=== PATIENT | female | born 1980 | race Hispanic/Latino ===

== ENCOUNTER → 2017-06-30 | Outpatient (CLI) | payer OTHER ==
[~2017-06-30] MED LIST: PROHANCE 279.3MG/ML 15ML VIAL (A9576) As Ordered
== END ==
LOC: M RAD 16:54
DX: R42 Dizziness and giddiness (principal)
CPT/HCPCS: A9576

== ENCOUNTER 2019-04-03 19:40 | Emergency (ER) | payer OTHER ==
[~2019-04-03] VITALS: Ht 154.9 cm; Wt 80.9 kg
[2019-04-03 23:12] VITALS: BP 170/90
[2019-04-03] MEDS ORDERED: ACETAMINOPHEN 325 MG TAB PO ONE (23:15)
[2019-04-03] MEDS ORDERED: hydrALAZINE INJ 20 MG/ML VIAL IV ONE (23:15)
[2019-04-03 23:20] LABS: BASO # 0.1 10^3/uL (0.0-0.2); BASO % 0.5 % (0.0-1.0); EOS # 0.2 10^3/uL (0.0-0.5); EOS % 1.9 % (0.0-3.0); HEMATOCRIT 40.9 % (36.0-47.0); HEMOGLOBIN 13.8 g/dl (12.0-15.5); LYMPH % 29.8 % (24.0-44.0); MEAN CORPUSCULAR HEMOGLOBIN 29.1 pg (27.0-33.0); MEAN CORPUSCULAR HGB CONC 33.7 g/dl (32.0-36.5); MEAN CORPUSCULAR VOLUME 86.1 fl (80.0-96.0); NEUTROPHILS # 5.9 10^3/uL (1.5-8.5); NEUTROPHILS % 57.4 % (36.0-66.0); PLATELET COUNT, AUTOMATED 357 10^3/uL (150-450); RED BLOOD COUNT 4.75 10^6/uL (4.00-5.40); WHITE BLOOD COUNT 10.2 10^3/uL (4.0-10.0)
[2019-04-03 23:28] LABS: HCG, SERUM QUALITATIVE NEGATIVE (NEGATIVE)
[2019-04-03 23:34] LABS: BLOOD UREA NITROGEN 11 MG/DL (7-18); CALCIUM LEVEL 8.9 MG/DL (8.5-10.1); CARBON DIOXIDE LEVEL 25 MEQ/L (21-32); CHLORIDE LEVEL 110 MEQ/L (98-107); CK-MB VALUE MASS < 1.0 NG/ML (<3.6); CPK CREATINE PHOSPHOKINASE 87 U/L (26-192); CREATININE FOR GFR 0.65 MG/DL (0.55-1.30); GLOMERULAR FILTRATION RATE > 60.0 (>60); GLUCOSE, FASTING 101 MG/DL (70-100); MB/CK RELATIVE INDEX 1.15 (< OR =4); SODIUM LEVEL 140 MEQ/L (136-145); TROPONIN I < 0.02 NG/ML (< 0.10)
[2019-04-03] MEDS ORDERED: KETOROLAC 30 MG/ML VIAL (J1885) As Ordered ONE (23:59)
[2019-04-04 00:20] VITALS: BP 147/90
--- NOTE | 2019-04-04 01:02 | ECGEPIP ---
[facility] - ED Test Date: 2019-04-03 Pat Name: TIFFANI GAMINO Department: Room: - Gender: Female Dietician: ct : 1980 Requested By: EMILY Quach PA-C Order Number: [id number] Reading MD: Juan Antonio Darling Measurements Intervals [place] Rate: 71 P: 9 TX: 155 QRS: -5 QRSD: 104 T: 18 QT: 380 QTc: 416 Interpretive Statements SINUS RHYTHM WITH SINUS ARRHYTHMIA INCOMPLETE RIGHT BUNDLE BRANCH BLOCK NSTTW ABNORMALITIES NO PRIORS FOR COMPARISON Electronically Signed on 04-04-2019 1:02:11 EDT by Juan Antonio Darling
--- NOTE | 2019-04-04 05:33 | REP ---
Clinical: Acute chest pain . Comparison: None . Technique: PA and lateral. Findings: The mediastinum and cardiac silhouette are normal. The lung alfaro are clear and without acute consolidation, effusion, or pneumothorax. The skeletal structures are intact and normal. Impression: 1. No acute cardiopulmonary process. Electronically Signed by Celestine Gates MD 04/04/2019 05:24 A
== END 2019-04-04 00:37 | disposition home or self-care (01) ==
LOC: M ED 19:40
DX: R00.2 Palpitations (principal); R51 Headache; R03.0 Elevated blood-pressure reading, without diagnosis of hypertension; I45.19 Other right bundle-branch block; R73.03 Prediabetes; Z87.442 Personal history of urinary calculi; Z87.891 Personal history of nicotine dependence; Z82.49 Family history of ischemic heart disease and other diseases of the circulatory system; Z83.3 Family history of diabetes mellitus; Z88.0 Allergy status to penicillin

== ENCOUNTER 2020-07-22 10:41 | Emergency (ER) | payer OTHER ==
[~2020-07-22] VITALS: Ht 154.9 cm; Wt 86.0 kg
--- OUTSIDE RECORDS SUMMARY | 2020-07-22 10:47 | CCD ---
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 [address] [address] October, Aby Lozoya Non-recurrent acute suppurative otitis media of both ears without spontaneous rupture of tympanic membranes H66.003 ; Bronchitis J40 and Wheezing R06.2 IMMUNIZATIONS No Information SOCIAL HISTORY Tobacco Use: Social History Observation Description Date Details (start date - stop date) Never Smoker Sex Assigned At : Social History Observation Description Sex Assigned At Unknown Sexual Hx: Question Answer Notes Had sex in the last 12 months (vaginal, oral, or anal)? Yes Have you ever had an STD? No with Men only Use protection? No Alcohol Screening: Question Answer Notes Did you have a drink containing alcohol in the past year? No Points 0 Interpretation Negative Tobacco Use: Question Answer Notes Are you a: never smoker REASON FOR REFERRAL No Information VITAL SIGNS Weight 173 lbs October, Height 5'1" in October, BMI 32.68 kg/m2 October, Heart Rate 85 /min October, Respiratory Rate 19 /min October, Temperature 97.8temporal degrees Fahrenheit October, Oximetry 97 October, Blood pressure systolic 139 mm Hg October, Blood pressure diastolic 89 mm Hg October, MEDICATIONS Medication SIG (Take, Route, Frequency, Duration) Notes Start Da te End Date Status Tylenol Childrens Active Albuterol Active Albuterol Sulfate (2.5 MG/3ML) 0.083% 3 ml as needed I nhalation Q4-6 hours (disp # 1 box) for 7 days October, Active Doxycycline Hyclate 100 MG 1 capsule Orally Twice a day for 10 d ay(s) October, Active ProAir HFA 108 (90 Base) MCG/ACT 2 puffs as needed Inh alation every 4-6 hrs for 7 days October, Active Ibuprofen 800 MG 1 tablet with food or milk as needed Ora lly Q8 prn for 10 days October, Active Mucinex Active PROCEDURES Procedure Date Ordered Result Body Site Medication: Albuterol Inh Soln 2.5mg/0.5ml (Proventil) 2018-10-10 3 N/A Medication: Motrin Tab 800mg Orally (Ibuprofen) 2018-10-22 N/A Nebulizer Treatment Initial 2018-10-22 N/A RESULTS No Results REASON FOR VISIT PAIN IN BOTH EARS MEDICAL (GENERAL) HISTORY Type Description Date Medical History Kidney Stone Medical History Pre Diabetic Medical History Fatty Liver Disease Medical History Seasonal Allergies Surgical History x 3 Surgical History Kidney stone removal via cystoscopy Surgical History Cholecystectomy Hospitalization History surgicaly related Goals Section No Information Health Concerns No Information MEDICAL EQUIPMENT No Information MENTAL STATUS No Information FUNCTIONAL STATUS No Information ASSESSMENTS Encounter Date Diagnosis Assessment Notes Treatment Notes Treatm ent Clinical Notes October, Non-recurrent acute suppurat jesus otitis media of both ears without spontaneous rupture of tympanic membranes (ICD-10 - H66.003) You have an ear infection as well as bronchitis. You have been prescribed an antibiotic as well as an inhaler for the wheezing. Probiotics are also recommended while on antibiotics and for 3-4 weeks afterward to help prevent antibiotic induced diarrhea. Supportive measures, ensure adequate fluid hydration, frequent hand washing, and rest. Follow up with your family doctor in 1 week if symptoms persist. October, Bronchitis (ICD-10 - J40) October, Wheezing (ICD-10 - R06.2) PLAN OF TREATMENT Medication Medication Name Sig Start Date Stop Date Doxycycline Hyclate 100 MG 1 capsule Orally Twice a day for 10 day(s) October, ProAir HFA 108 (90 Base) MCG/ACT 2 puffs as needed Inh alation every 4-6 hrs for 7 days October, Albuterol Sulfate (2.5 MG/3ML) 0.083% 3 ml as needed I nhalation Q4-6 hours (disp # 1 box) for 7 days October, Ibuprofen 800 MG 1 tablet with food or milk as needed Ora lly Q8 prn for 10 days October, Treatment Notes Assessment Notes Clinical Notes Non-recurrent acute suppurative otitis m edia of both ears without spontaneous rupture of tympanic membranes You have an ear infection as well as bro nchitis. You have been prescribed an antibiotic as well as an inhaler for the wheezing. Probiotics are also recommended while on antibiotics and for 3-4 weeks afterward to help prevent antibiotic induced diarrhea. Supportive measures, ensure adequate fluid hydration, frequent hand washing, and rest. Follow up with your family doctor in 1 week if symptoms persist. Next Appt Details prn Reason: Insurance Providers Payer Name Payer Address Payer Phone Insured Name Patient Relati onship to Insured Coverage Start Date Coverage End Date [facility] [id number] [facility] [id number] Bret Swenson
--- OUTSIDE RECORDS SUMMARY | 2020-07-22 10:48 | CCD ---
Author Author [facility] Organization [facility] Address Unknown Phone Unavailable Support Name Relationship Address Phone CPT LAWANDREEA Next Of Kin UNKNOWN [place], [place] [phone] UE Next Of Kin Unknown Unavailable KORINA MUÑOZ Next Of Kin [address] [place], [place] [phone] Re-disclosure Warning The records that you are about to access may contain information from federally-assisted alcohol or drug abuse programs. If such information is present, then the following federally mandated warning applies: This information has been disclosed to you from records protected by federal confidentiality rules (42 CFR part 2). The federal rules prohibit you from making any further disclosure of this information unless further disclosure is expressly permitted by the written consent of the person to whom it pertains or as otherwise permitted by 42 CFR part 2. A general authorization for the release of medical or other information is NOT sufficient for this purpose. The Federal rules restrict any use of the information to criminally investigate or prosecute any alcohol or drug abuse patient.The records that you are about to access may contain highly sensitive health information, the redisclosure of which is protected by Article 27-F of the [facility] Public Health law. If you continue you may have access to information: Regarding HIV / AIDS; Provided by facilities licensed or operated by the [facility] Office of Mental Health; or Provided by the [facility] Office for People With Developmental Disabilities. If such information is present, then the following [facility] mandated warning applies: This information has been disclosed to you from confidential records which are protected by state law. State law prohibits you from making any further disclosure of this information without the specific written consent of the person to whom it pertains, or as otherwise permitted by law. Any unauthorized further disclosure in violation of state law may result in a fine or longterm sentence or both. A general authorization for the release of medical or other information is NOT sufficient authorization for further disc losure. Insurance Providers Payer name Policy type / Coverage type Policy ID Covered republican ID Covered republican's relationship to jauregui Policy Jauregui Plan Information [facility] [id number] [facility] [id number] ANSI-Not a Secondary Insurance [id number] ANSI-Not a Secondary Insurance [id number] [employer] [id number] [facility] [id number] [employer] [id number] [facility] [id number]
--- OUTSIDE RECORDS SUMMARY | 2020-07-22 10:48 | CCD ---
Author Author [facility] Organization [facility] Address Unknown Phone Unavailable Care Team Providers Care Power Engineer Name Role Phone Aby Lozoya Unavailable PROBLEMS Type Condition ICD9-CM Code [id number] Code Onset Dates Condition S tatus SNOMED Code Notes Problem Kidney stone N20.0 Active [id number] ALLERGIES Allergen (clinical drug ingredient) Drug/Non Drug Allergy do cumented on EMR Reaction Allergy Type Onset Date Status Penicillin (For Allergies Use Only) Dyspnea,hives Drug All ergy Active ENCOUNTERS from 1980 to 2020-05-07 Encounter Location Date Provider Diagnosis [facility] [address] [address] October, Aby Lozoya Non-recurrent acute suppurative otitis [...] Insured Coverage Start Date Coverage End Date [facility] [address] [facility] [address] Bret Swenson
[2020-07-22] MEDS ORDERED: LISI10TA22 PO (10:57)
[2020-07-22] MEDS ORDERED: ESCI5SOL3 PO (10:57)
[2020-07-22] MEDS ORDERED: VITMTA PO (10:57)
[2020-07-22] MEDS ORDERED: BCP (10:57)
[2020-07-22] MEDS ORDERED: D31000TA2 PO (10:57)
[2020-07-22] MEDS ORDERED: KETOROLAC 30 MG/ML 1ML VIAL IV ONE (11:15)
[2020-07-22 11:59] LABS: BASO % 0.5 % (0.0-1.0); EOS # 0.1 10^3/uL (0.0-0.5); EOS % 1.7 % (0.0-3.0); HEMATOCRIT 40.1 % (36.0-47.0); HEMOGLOBIN 13.1 g/dl (12.0-15.5); LYMPH # 2.5 10^3/uL (1.5-5.0); LYMPH % 32.7 % (24.0-44.0); MEAN CORPUSCULAR HEMOGLOBIN 28.9 pg (27.0-33.0); MEAN CORPUSCULAR HGB CONC 32.7 g/dl (32.0-36.5); MEAN CORPUSCULAR VOLUME 88.5 fl (80.0-96.0); MONO # 0.8 10^3/uL (0.0-0.8); MONO % 10.5 % (0.0-5.0); NEUTROPHILS # 4.2 10^3/uL (1.5-8.5); NEUTROPHILS % 54.3 % (36.0-66.0); PLATELET COUNT, AUTOMATED 347 10^3/uL (150-450); RED BLOOD COUNT 4.53 10^6/uL (4.00-5.40); WHITE BLOOD COUNT 7.7 10^3/uL (4.0-10.0)
--- OUTSIDE RECORDS SUMMARY | 2020-07-22 12:03 | CCD ---
Author Author [facility] Organization [facility] Address Unknown Phone Unavailable Support Name Relationship Address Phone SCORC[place]O [place] [address] LAWANCE, CPT [place] [address] CPT, LAWANCE [place] [address] UE Next Of Kin Unknown Unavailable KORINA MUÑOZ Next Of Kin [address] [place], [place] [phone] Re-disclosure Warning The records that you are [...] is protected by Article 27-F of the [facility] Public Health law. If you continue you may have access to information: Regarding HIV / AIDS; Provided by facilities licensed or operated by the [facility] Office of Mental Health; or Provided by the [facility] Office for People With Developmental Disabilities. If such information is present, then the following [facility] mandated warning applies: This information has been [...] law may result in a fine or custodial sentence or both. A general authorization for the release of medical or other information is NOT sufficient authorization for further disc losure. Insurance Providers Payer name Policy type / Coverage type Policy ID Covered libertarian ID Covered libertarian's relationship to jauregui Policy Jauregui Plan Information [facility] [id number] [facility] [id number] ANSI-Not a Secondary Insurance [id number] ANSI-Not a Secondary Insurance [id number] ACT[employer] DUT[employer] [id number] [facility] [id number] [employer] [id number] [facility] [id number]
[2020-07-22 12:23] LABS: ALBUMIN 3.6 GM/DL (3.2-5.2); ALT/SGPT 23 U/L (12-78); BILIRUBIN,DIRECT < 0.1 MG/DL (0.0-0.2); BILIRUBIN,TOTAL < 0.1 MG/DL (0.2-1.0); LIPASE 107 U/L (73-393); TOTAL PROTEIN 7.2 GM/DL (6.4-8.2)
--- NOTE | 2020-07-22 13:16 | REP ---
INDICATION: right pelvic pain; r/o cyst/torsion. COMPARISON: None. TECHNIQUE: Transabdominal and transvaginal scanning performed. FINDINGS: Uterine dimensions are 9.4 x 5.0 x 4.9 cm. Endometrial echo is 6 mm in AP dimension and centrally placed. Complex cystic structure in the region of the cervix probably represents a complex nabothian cyst, 1.2 cm in diameter. Posterior right uterine fibroid measures 2.2 x 1.6 x 1.5 cm. The bladder measures 2.9 x 1.9 x 3.4. The right ovary has dimensions of 2.8 x 1.9 x 2.1 cm. It's Doppler flow is normal with a resistive index of 0.42. The left ovary dimensions are 3.2 x 2.1 x 2.0 cm. It's Doppler flow was normal with resistive index of 0.37. There is no adnexal mass identified. No free fluid is seen in the cul-de-sac. A dominant follicle in the left ovary measures 1.3 cm in diameter. IMPRESSION: Right uterine fibroid 2.2 cm in maximum diameter. Dominant follicle left ovary 1.3 cm. No other evidence of adnexal mass. No free fluid. No torsion. <Electronically signed by Ar Medeiros > 07/22/20 1311
[2020-07-22] MEDS ORDERED: HYDR-3715 PO (13:43)
[2020-07-22 13:59] VITALS: BP 139/83
== END 2020-07-22 14:00 | disposition home or self-care (01) ==
LOC: M ED 10:41
DX: D25.9 Leiomyoma of uterus, unspecified (principal); N83.299 Other ovarian cyst, unspecified side; E28.2 Polycystic ovarian syndrome; Z87.442 Personal history of urinary calculi; Z79.3 Long term (current) use of hormonal contraceptives; Z79.899 Other long term (current) drug therapy; Z88.0 Allergy status to penicillin
CPT/HCPCS: 76830; 76856; 80047; 80076; 81001; 83690; 84702; 85025; 93976; 96374; 99284; J1885

== ENCOUNTER → 2020-08-19 | Outpatient (CLI) | payer OTHER ==
[~2020-08-19] MED LIST changes: +BCP; +D31000TA2 PO; +ESCI5SOL3 PO; +GASTROGRAFIN SOLUTION 30ML (Q9963) As Ordered ONE; +HYDR-3715 PO; +ISOVUE-370 76% 100ML VIAL As Ordered ONE; +LISI10TA22 PO; -PROHANCE 279.3MG/ML 15ML VIAL (A9576) As Ordered; +VITMTA PO
--- NOTE | 2020-08-19 16:13 | REP ---
INDICATION: HERNIA OF UMBILICUS. COMPARISON: None TECHNIQUE: Axial contrast-enhanced images from the lung bases to the pubic symphysis using oral and 100 cc Isovue 370 intravenous contrast material. Precontrast images of the abdomen along with coronal and sagittal reformations obtained. This CT examination was performed using the following dose reduction techniques: Automated exposure control, adjustment of mA and/or kv according to the patient's size, and the use of iterative reconstruction technique. FINDINGS: Lung bases are clear. Visualized heart and pericardium are normal. Liver, spleen, pancreas, bilateral adrenal glands and kidneys are essentially normal. Incidental 3 mm nonobstructing left renal calculus noted. The enteric system including stomach, small, and large bowel appears normal. No evidence for obstruction or acute inflammatory process. Normal terminal ileum and appendix are identified in the right lower quadrant. Few scattered sigmoid diverticula without acute diverticulitis. 1.5 cm fat containing periumbilical hernia identified without acute inflammatory stranding or fluid. Pelvis demonstrates normal bladder and age-appropriate uterus/adnexa. No ascites. No free air. No intraperitoneal or retroperitoneal adenopathy. Abdominal aorta and vasculature appear normal. Musculoskeletal structures are intact and without acute osseous abnormality. IMPRESSION: No acute abdominopelvic pathology appreciated. Small 1.5 cm fat containing periumbilical hernia without acute changes. 3 mm nonobstructing left renal calculus. Few scattered sigmoid diverticula without acute diverticulitis. <Electronically signed by Celestine Gates > 08/19/20 1911
== END ==
LOC: M RAD 14:19
DX: K42.9 Umbilical hernia without obstruction or gangrene (principal)
CPT/HCPCS: 74178; Q9963; Q9967

== ENCOUNTER 2021-02-02 13:27 | Emergency (ER) | payer OTHER ==
[~2021-02-02] VITALS: Ht 154.9 cm; Wt 81.4 kg
[~2021-02-02 13:27] MED LIST changes: -GASTROGRAFIN SOLUTION 30ML (Q9963) As Ordered ONE; -ISOVUE-370 76% 100ML VIAL As Ordered ONE
[2021-02-02] MEDS ORDERED: DOXY1CAP62 PO (17:16)
[2021-02-02 17:21] VITALS: BP 120/75
[2021-02-02 17:22] LABS: BASO # 0.1 10^3/uL (0.0-0.2); BASO % 0.9 % (0.0-1.0); EOS # 0.3 10^3/uL (0.0-0.5); HEMATOCRIT 42.3 % (36.0-47.0); HEMOGLOBIN 14.2 g/dl (12.0-15.5); LYMPH # 2.8 10^3/uL (1.5-5.0); LYMPH % 32.1 % (24.0-44.0); MEAN CORPUSCULAR HEMOGLOBIN 29.6 pg (27.0-33.0); MEAN CORPUSCULAR HGB CONC 33.6 g/dl (32.0-36.5); MEAN CORPUSCULAR VOLUME 88.3 fl (80.0-96.0); MONO # 0.8 10^3/uL (0.0-0.8); MONO % 9.7 % (2.0-8.0); NEUTROPHILS # 4.7 10^3/uL (1.5-8.5); NEUTROPHILS % 54.1 % (36.0-66.0); PLATELET COUNT, AUTOMATED 421 10^3/uL (150-450); RED BLOOD COUNT 4.79 10^6/uL (4.00-5.40); WHITE BLOOD COUNT 8.6 10^3/uL (4.0-10.0)
== END 2021-02-02 17:23 | disposition home or self-care (01) ==
LOC: M ED 13:27
DX: T81.31XA Disruption of external operation (surgical) wound, not elsewhere classified, initial encounter (principal); Z98.84 Bariatric surgery status; I10 Essential (primary) hypertension; F41.9 Anxiety disorder, unspecified; Z87.442 Personal history of urinary calculi; Z79.3 Long term (current) use of hormonal contraceptives; Z79.899 Other long term (current) drug therapy; Z88.0 Allergy status to penicillin